=== PATIENT | male | born 1980 | race Caucasian/White ===

== ENCOUNTER 2018-09-02 10:44 | Emergency (ER) | payer BC ==
[2018-09-02] MEDS ORDERED: Alum Hydrox/Mag Hydrox/Simeth 30 ML, Lidocaine 2% 15 ML PO ONE ×2 (12:12)
--- NOTE | 2018-09-02 12:22 | EDM.PDOC ---
ED HPI GENERAL MEDICAL PROBLEM - General Chief Complaint: Chest Pain Stated Complaint: [facility] Time Seen by Provider: 09/02/18 11:01 Source of Information: Reports: Patient History Limitations: Reports: No Limitations - History of Present Illness INITIAL COMMENTS - FREE TEXT/NARRATIVE: 38 y/o male presents to ER with cc chest pain. He reports early this morning he developed sudden onset of chest pain. He states the pain is in the center of his chest, he describes it as a pressure. He reports it made him feel like "something isn't right and made him feel off." He denies SOB, diaphoresis,, arm pain, jaw pain or back pain. He states he felt better after he drank water. Nothing make it worse. He reports recently being treated with Amoxicillin for dental infection for the past 3 days. He denies fever, chills or headache. His does have a history HTN but does not take medications for it. He does smoke cigarettes. His PCP is Dr. Tu Reid M.D. He is accompanied by his parents. Onset: Today Onset Date: 09/02/18 Onset Time: 08:00 Duration: Waxing/Waning Location: Reports: Chest Quality: Reports: Ache, Pressure Severity: Mild Improves with: Reports: Other (drinking water) Worsens with: Reports: None Associated Symptoms: Reports: Chest Pain. Denies: Confusion, Cough, Diaphoresis , Fever/Chills, Headaches, Loss of Appetite, Nausea/Vomiting, Shortness of Breath, Syncope Chest Pain Score (Numeric/FACES): 7 - Related Data Allergies Allergy/AdvReac Type Severity Reaction Status Date / Time No Known Allergies Allergy Verified 09/02/18 10:55 Home Meds: Home Meds Omeprazole Magnesium [Prilosec Otc] 40 mg PO DAILY 7 Days #14 tablet. [Rx] Past Medical History HEENT History: Reports: Hard of Hearing, Other (See Below) Other HEENT History: hearing loss Social & Family History - Tobacco Use Smoking Status *Q: Current Every Day Smoker Years of Tobacco use: 20 Packs/Tins Daily: 1 - Caffeine Use Caffeine Use: Reports: Coffee - Recreational Drug Use Recreational Drug Use: No ED ROS GENERAL - Review of Systems Review Of Systems: See Below Constitutional: Denies: Fever, Chills, Decreased Appetite HEENT: Reports: Dental Pain, Other (left lower dental pain, currently taking Amoxicillin) Respiratory: Denies: Shortness of Breath Cardiovascular: Reports: Chest Pain. Denies: Dyspnea on Exertion, Palpitations , Syncope Endocrine: Reports: No Symptoms GI/Abdominal: Reports: No Symptoms : Reports: No Symptoms Musculoskeletal: Reports: No Symptoms Skin: Reports: No Symptoms Neurological: Reports: No Symptoms Psychiatric: Reports: No Symptoms Hematologic/Lymphatic: Reports: No Symptoms Immunologic: Reports: No Symptoms ED EXAM, GENERAL - Physical Exam Exam: See Below General Appearance: Alert, WD/WN Ears: Normal External Exam, Normal Canal, Normal TMs, Hearing Loss Nose: Normal Inspection, Normal Mucosa, No Blood Throat/Mouth: Normal Inspection, Normal Lips, Normal Teeth, Normal Gums, Normal Oropharynx, Normal Voice, No Airway Compromise Head: Atraumatic, Normocephalic Neck: Normal Inspection, Supple, Non-Tender, Full Range of Motion Respiratory/Chest: No Respiratory Distress, Lungs Clear, Normal Breath Sounds, No Accessory Muscle Use, Chest Non-Tender Cardiovascular: Normal Peripheral Pulses, Regular Rate, Rhythm, No Edema, No Gallop, No JVD, No Murmur, No Rub GI/Abdominal: Normal Bowel Sounds, Soft, Non-Tender, No Organomegaly, No Distention, No Abnormal Bruit, No Mass, Pelvis Stable Back Exam: Normal Inspection, Full Range of Motion Extremities: Normal Inspection, Normal Range of Motion, Non-Tender, No Pedal Edema, Normal Capillary Refill Neurological: Alert, Oriented, CN II-XII Intact, Normal Cognition, Normal Gait, Normal Reflexes, No Motor/Sensory Deficits Psychiatric: Normal Affect, Normal Mood Skin Exam: Warm, Dry, Intact, Normal Color, No Rash Lymphatic: No Adenopathy Course - Vital Signs Last Recorded V/S: Last Vital Signs Temp 97.8 F 09/02/18 10:51 Pulse 95 09/02/18 12:15 Resp 17 09/02/18 12:15 BP 179/114 H 09/02/18 12:58 Pulse Ox 97 09/02/18 12:15 - Orders/Labs/Meds Orders: Active Orders 24 hr Category Date Time Status EKG 12 Lead [EKG Documentation Completion] [RC] STAT Care 09/02/18 11:38 Active Lisinopril [Prinivil] Med 09/02/18 12:26 Active 5 mg PO DAILY Medication Orders Lisinopril (Prinivil) 5 mg PO DAILY JUAN ANTONIO Last Admin: 09/02/18 12:58 Dose: 5 mg Labs: Laboratory Tests 09/02/18 09/02/18 09/02/18 Range/Units 11:45 11:45 11:45 WBC 9.48 H (4.23-9.07) K/mm3 RBC 4.62 L (4.63-6.08) M/mm3 Hgb 14.8 (13.7-17.5) gm/L Hct 43.5 (40.1-51.0) % MCV 94.2 H (79.0-92.2) fl MCH 32.0 (25.7-32.2) pg MCHC 34.0 (32.2-35.5) g/dl RDW Std Deviation 40.9 (35.1-43.9) fL Plt Count 266 (163-337) K/mm3 MPV 9.3 L (9.4-12.3) fl Neut % (Auto) 86.0 H (34.0-67.9) % Lymph % (Auto) 6.8 L (21.8-53.1) % [place] % (Auto) 6.8 (5.3-12.2) % Eos % (Auto) 0.1 L (0.8-7.0) Baso % (Auto) 0.2 (0.1-1.2) % Neut # (Auto) 8.16 H (1.78-5.38) K/mm3 Lymph # (Auto) 0.64 L (1.32-3.57) K/mm3 [place] # (Auto) 0.64 (0.30-0.82) K/mm3 Eos # (Auto) 0.01 L (0.04-0.54) K/mm3 Baso # (Auto) 0.02 (0.01-0.08) K/mm3 Manual Slide Review Normal smear Sodium 136 (136-145) mEq/L Potassium 3.8 (3.5-5.1) mEq/L Chloride 99 (98-107) mEq/L Carbon Dioxide 24 (21-32) mEq/L Anion Gap 16.8 H (5-15) BUN 9 (7-18) mg/dL Creatinine 1.0 (0.7-1.3) mg/dL Est Cr Clr Drug Dosing 109.93 mL/min Estimated GFR (MDRD) > 60 (>60) mL/min BUN/Creatinine Ratio 9.0 L (14-18) Glucose 113 H (74-106) mg/dL Calcium 9.1 (8.5-10.1) mg/dL Total Bilirubin 0.5 (0.2-1.0) mg/dL AST 57 H (15-37) U/L ALT 49 (16-63) U/L Alkaline Phosphatase 66 (46-116) U/L CK-MB (CK-2) 1.2 (0-3.6) ng/ml Troponin I < 0.017 (0.00-0.056) ng/mL Total Protein 7.0 (6.4-8.2) g/dl Albumin 3.9 (3.4-5.0) g/dl Globulin 3.1 gm/dL Albumin/Globulin Ratio 1.3 (1-2) Lipase 203 (73-393) U/L Meds: Medications Generic Name Dose Route Start Last Admin Trade Name Freq PRN Reason Stop Dose Admin Lisinopril 5 mg 09/02/18 12:26 09/02/18 12:58 Prinivil PO 5 mg DAILY JUAN ANTONIO Administration Discontinued Medications Generic Name Dose Route Start Last Admin Trade Name Freq PRN Reason Stop Dose Admin Al Hydroxide/Mg Hydroxide 30 0 ml 09/02/18 12:12 09/02/18 12:17 ml/ Lidocaine HCl 15 ml PO 09/02/18 12:13 45 ml ONETIME ONE Administration - Re-Assessments/Exams Free Text/Narrative Re-Assessment/Exam: 09/02/18 14:23 38 y/o male presented to ER with cc sudden onset chest pain. His WBC is 9.48, H & H 14.8 and 43.5. Neutrophils 86.0 lymphs 6.8. Sodium 136 potassium 3.8 chloride 99 CO2 24. Glucose 113 and this is stress related AST 57. ALT 49 troponin 0.017. Lipase is 203. He received GI cocktail and this condition. Each EKG revealed normal sinus rhythm rate 89 probable left atrial enlargement. Patient was hypertensive during his course here in the ER. I will discharge home with instructions to follow up with his PCP for further evaluation and treatment of his hypertension. I did discuss the patient smoking cessation. I feel that his pain is not cardiac in nature. I will discharge him with Prilosec low-fat diet. Instructed patient to return to the emergency room for any new or acutely worsening symptoms. Patient verbalized understanding and is comfortable plan for discharge. Patient is stable at time of discharge. Departure - Departure Time of Disposition: 14:28 Disposition: Home, Self-Care 01 Condition: Good Clinical Impression: Atypical chest pain, Hypertension Gastroesophageal reflux disease Qualifiers: Esophagitis presence: without esophagitis Qualified Code(s): K21.9 - Gastro- esophageal reflux disease without esophagitis Prescriptions: Omeprazole Magnesium [Prilosec Otc] 40 mg PO DAILY 7 Days #14 tablet.dr Instructions: Food Choices for Gastroesophageal Reflux Disease, Adult, Heartburn, [id number], Nonspecific Chest Pain, [id number], Hypertension, Coping with Quitting Smoking, Steps to Quit Smoking Referrals: Kevin Wills MD [Primary Care Provider] - Forms: ED Department Discharge Additional Instructions: You have been diagnosis with atypical chest pain. I do not feel things cardiac in nature. He had been diagnosed with hypertension. He did follow-up with your PCP for further evaluation and treatment. You have been diagnosed with GERD. I recommend she do follow a low-fat and decrease spicy diet. He should elevate the head of your bed. I recommend she follow up with a biometrician for further evaluation and treatment. Return to the emergency room for any new or acutely worsening symptoms. - My Orders Last 24 Hours: My Active Orders 09/02/18 12:26 Lisinopril [Prinivil] 5 mg PO DAILY - Assessment/Plan Last 24 Hours: My Active Orders 09/02/18 12:26 Lisinopril [Prinivil] 5 mg PO DAILY
[2018-09-02] MEDS ORDERED: Lisinopril 5 MG Tab PO SCH (12:26)
--- NOTE | 2018-09-02 13:00 | CR ---
Chest: Two views of the chest were obtained. Comparison: No prior chest x-ray. Heart size and mediastinum are normal. Lungs are clear. Bony structures are unremarkable. Impression: 1. Nothing acute is seen on two-view chest x-ray. Diagnostic code #1
== END 2018-09-02 14:41 | disposition home or self-care (01) ==
LOC: JD.ED 10:44
DX: K21.9 Gastro-esophageal reflux disease without esophagitis (principal); R07.89 Other chest pain; I10 Essential (primary) hypertension; F17.210 Nicotine dependence, cigarettes, uncomplicated; Z79.899 Other long term (current) drug therapy
CPT/HCPCS: 36415; 71046; 80053; 82553; 83690; 84484; 85025; 93005; 99285; A9270; 93010; 99284

== ENCOUNTER 2021-09-06 15:51 | Emergency (ER) | payer BC | END 2021-09-06 17:30 | disposition home or self-care (01) | LOC: JD.ED 15:51 | DX: S60.031A Contusion of right middle finger without damage to nail, initial encounter (principal); I10 Essential (primary) hypertension; Z72.0 Tobacco use; Z88.5 Allergy status to narcotic agent; W22.09XA Striking against other stationary object, initial encounter | CPT/HCPCS: 11740; 73140-26-F7; 73140-F7; 99282; 99283-25 ==